=== PATIENT | male | born 1935 | race Caucasian/White ===

== ENCOUNTER 2017-05-13 17:38 | Emergency (ER) | payer SELFPAY ==
[~2017-05-13] VITALS: Ht 177.8 cm; Wt 99.8 kg
--- NOTE | 2017-05-13 17:54 | NUR ---
PT FIONA FROM HOME TO ER BED 10. PER REPORT, HYPERTENSION. C/O HEADACHE AND DIZZINESS. GOWNED AND PLACED ON MONITOR. NAD NOTED. AWAITING MD WINTERS.
--- NOTE | 2017-05-13 18:29 | NUR ---
DR IZQUIERDO AT BEDSIDE FOR EVAL.
[2017-05-13 19:00] LABS: BASOPHILS % (AUTO) 0.3 % (0.0-2.0); EOSINOPHILS # (AUTO) 0.1 /CMM (0.0-0.7); HEMATOCRIT 43 % (39-51); HEMOGLOBIN 14.6 g/dL (13.5-17.5); LYMPHOCYTES # (AUTO) 1.4 /CMM (0.8-4.8); LYMPHOCYTES % (AUTO) 21.7 % (20.0-44.0); MEAN CORPUSCULAR HEMOGLOBIN 28 PG (26.0-33.0); MEAN CORPUSCULAR HGB CONC 34 g/dl (31.0-36.0); MEAN CORPUSCULAR VOLUME 82 fL (80-96); MONOCYTES # (AUTO) 0.4 /CMM (0.1-1.30); MONOCYTES % (AUTO) 6.7 % (2.0-12.0); NEUTROPHILS # (AUTO) 4.8 /CMM (1.8-8.9); NEUTROPHILS % (AUTO) 69.3 % (43.0-81.0); PLATELET COUNT (AUTO) 163 /CMM (150-450); RDW COEFFICIENT OF VARIATION 12.3 (11.5-15.0); RED BLOOD CELL COUNT(AUTO) 5.19 MIL/uL (4.5-6.0); WHITE BLOOD COUNT (AUTO) 6.7 K/uL (4.3-11.0)
[2017-05-13 19:10] LABS: CALCIUM, SERUM 9.1 mg/dL (8.5-10.1); CARBON DIOXIDE 31 mmol/L (21-32); CHLORIDE 105 mmol/L (98-107); GLUCOSE 127 mg/dL (74-106); POTASSIUM 3.8 mmol/L (3.5-5.1); SODIUM SERUM 142 mmol/L (136-145); UREA NITROGEN, BLOOD 21 mg/dL (7-18)
[2017-05-13 19:15] LABS: INR 0.96 (0.87-1.13)
--- NOTE | 2017-05-13 20:35 | NUR ---
Patient discharged to home in stable condition. Written and verbal after care instructions given. Patient verbalizes understanding of instruction.IV removed. Catheter intact and site benign. Pressure and 4x4 applied to site. No bleeding noted.
[2017-05-13 20:36] VITALS: BP 152/77
== END 2017-05-13 20:37 | disposition home or self-care (01) ==
LOC: ER 17:40
DX: R42 Dizziness and giddiness (principal); I10 Essential (primary) hypertension; Z85.841 Personal history of malignant neoplasm of brain
CPT/HCPCS: 36415; 70450; 80048; 85025; 85730; 93005; 99285; A4606; Z7610

== ENCOUNTER 2017-06-24 20:14 | Emergency (ER) | payer OTHER ==
[~2017-06-24] VITALS: Ht 180.3 cm; Wt 100.7 kg
--- NOTE | 2017-06-24 20:20 | NUR ---
PT BROUGHT WITH C/O OF ABNORMAL SPEACH X 2 HOURS AGO. PT STATES " I WAS HAVING A HARD TIME TALKING, BUT I AM A LITTLE BETTER NOW." PT IS AAOX4. RESP EVEN AND UNLABORED. SKIN WNL AND WARM. NO S/S OF ACUTE DISTRESS NOTED. PT ABLE TO MOVE ALL EXTREMITIES WITH NO EVIDENT DEFICITS. PER , PT'S SMILE IS SLIGHTLY DROOPY ON THE RIGHT SIDE. MADE AWARE. PT GOWNED AND PLACED ON MONITOR AND POX. PT SAFETY AND COMFORT MEASURES IN PLACE. BEDSIDE FOR EVAL.
--- NOTE | 2017-06-24 20:24 | NUR ---
PT TO CT
--- NOTE | 2017-06-24 20:26 | NUR ---
RADIOLOGY BEDSIDE FOR X-RAY.
[2017-06-24] MEDS ORDERED: LABETALOL 20 MG/4 ML VIAL IV ONE (20:30)
[2017-06-24 21:05] LABS: BASOPHILS % (AUTO) 0.4 % (0.0-2.0); EOSINOPHILS # (AUTO) 0.1 /CMM (0.0-0.7); EOSINOPHILS % (AUTO) 0.9 % (0.0-6.0); HEMATOCRIT 41 % (39-51); LYMPHOCYTES # (AUTO) 1.3 /CMM (0.8-4.8); LYMPHOCYTES % (AUTO) 21.8 % (20.0-44.0); MEAN CORPUSCULAR HEMOGLOBIN 29 PG (26.0-33.0); MEAN CORPUSCULAR HGB CONC 34 g/dl (31.0-36.0); MEAN CORPUSCULAR VOLUME 84 fL (80-96); MONOCYTES # (AUTO) 0.5 /CMM (0.1-1.30); MONOCYTES % (AUTO) 8.4 % (2.0-12.0); NEUTROPHILS % (AUTO) 68.5 % (43.0-81.0); PLATELET COUNT (AUTO) 134 /CMM (150-450); RDW COEFFICIENT OF VARIATION 14.2 (11.5-15.0); RED BLOOD CELL COUNT(AUTO) 4.84 MIL/uL (4.5-6.0); WHITE BLOOD COUNT (AUTO) 5.9 K/uL (4.3-11.0)
--- NOTE | 2017-06-24 21:12 | NUR ---
ACCU CHECK PERFORMED. MADE AWARE
[2017-06-24 21:16] LABS: INR 1.02 (0.87-1.13)
[2017-06-24 21:17] LABS: CARBON DIOXIDE 27 mmol/L (21-32); CHLORIDE 106 mmol/L (98-107); GLUCOSE 130 mg/dL (74-106); POTASSIUM 3.9 mmol/L (3.5-5.1); SODIUM SERUM 143 mmol/L (136-145); UREA NITROGEN, BLOOD 29 mg/dL (7-18)
--- NOTE | 2017-06-24 21:17 | NUR ---
Patient is resting comfortably in bed with eyes open. bedside with pt. VSS
[2017-06-24 21:23] LABS: CHOLESTEROL 127 mg/dL (<200); HDL CHOLESTEROL 43 mg/dL (40-60); LDL 62 mg/dL (0-99); TRIGLYCERIDES 161 mg/dL (30-150)
[2017-06-24 21:24] LABS: ALANINE AMINOTRANSFERASE 49 U/L (12-78); ALBUMIN 3.2 g/dL (3.4-5.0); ALKALINE PHOSPHATASE 127 U/L (46-116); ASPARTATE AMINOTRANSFERASE 28 U/L (15-37); BILIRUBIN,DIRECT 0.2 mg/dL (0.0-0.2); TOTAL PROTEIN, SERUM 6.5 g/dL (6.4-8.2); TROPONIN I < 0.017 ng/mL (0.00-0.056)
--- NOTE | 2017-06-24 21:27 | NUR ---
MISTY SETH DR
[2017-06-24] MEDS ORDERED: ASPIRIN 325 MG TABLET PO ONE (21:30)
[2017-06-24] MEDS ORDERED: LEVETIRACETAM (500MG) 500 MG in IV NS 0.9% 100 ML IV SCH (21:30)
--- NOTE | 2017-06-24 22:05 | NUR ---
CALLED [facility] FOR TRANSFER INFO - NOT AVAILABLE YET
[2017-06-24] MEDS ORDERED: LEVETIRACETAM (500MG) 500 MG/5 ML VIAL IV ONE (22:14)
[2017-06-24] MEDS ORDERED: ASPIRIN 325 MG TABLET ONE (22:14)
--- NOTE | 2017-06-24 22:17 | NUR ---
PATIENT IS BEING TRANSFERRED TO [facility] - ACCEPTING DR SUTHERLAND - GIVE REPORT TO ER - ALS [facility] EN ROUTE ETA [phone]
--- NOTE | 2017-06-24 22:38 | NUR ---
PATIENT DOES NOT WANT TO GO TO [facility] - CALLED [facility] TO SEE IF DESTINATION CAN CHANGE - AWAITING CALL BACK
[2017-06-24] MEDS ORDERED: LABETALOL HCL IV 100MG VIAL ONE (22:48)
--- NOTE | 2017-06-24 23:07 | NUR ---
EMT AND FAMILY MEMBER BEDSIDE TO HELP PT TO RESTROOM.
[2017-06-24] MEDS ORDERED: MAG HYDROX/AL HYDROX/SIMETH 30 ML UDC ONE (23:23)
[2017-06-24] MEDS ORDERED: MAG HYDROX/AL HYDROX/SIMETH 30 ML UDC PO ONE (23:30)
--- NOTE | 2017-06-25 00:20 | NUR ---
Patient is resting comfortably in bed with eyes open. VSS. Family member bedside with pt.
--- NOTE | 2017-06-25 00:34 | NUR ---
PT ACCEPTED TO [facility] ROOM 5[address] BY DR ALMODOVAR. # FOR REPORT [phone]. ETA [phone]
--- NOTE | 2017-06-25 01:46 | NUR ---
GAVE REPORT TO JACINDA MATSON AT [facility]. PRN BEDSIDE FOR TRANSPORT. Patient Tranfers to outside Facility [facility] Physician: kin Location:[facility]
[2017-06-25 01:51] VITALS: BP 169/92
== END 2017-06-25 01:56 ==
LOC: ER 20:16
DX: G45.9 Transient cerebral ischemic attack, unspecified (principal); E11.9 Type 2 diabetes mellitus without complications; G40.909 Epilepsy, unspecified, not intractable, without status epilepticus; G93.89 Other specified disorders of brain; I10 Essential (primary) hypertension; N40.0 Benign prostatic hyperplasia without lower urinary tract symptoms; Z79.82 Long term (current) use of aspirin; Z85.841 Personal history of malignant neoplasm of brain
CPT/HCPCS: 36415; 70450-TC; 71045-TC; 80048-TC; 80061-TC; 80076-TC; 82962-TC; 84484-TC; 85025-TC; 85730-TC; A4606; J1953; J3490; J7030; Z7610

== ENCOUNTER 2017-10-03 01:51 | Emergency (ER) | payer OTHER ==
[~2017-10-03] VITALS: Ht 175.3 cm; Wt 102.5 kg
--- NOTE | 2017-10-03 01:52 | NUR ---
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 PT AAOX4 NO ACUTE DISTRESS NOTED, RESP EVEN AND UNLABORED. SKIN WARM, NONDIAPHORETIC. PUPILS PERRLA, PT ABLE TO MOVE ALL EXTREMITIES WELL WITH WILATERAL EQUAL PEDIATRIC NURSE. PLACE PT ON CARDIAC MONITORING, CONTINUOUS POX. ER MD AT BEDSIDE TO EVAL PT WITH ORDERS RECEIVED. WILL CARRY OUT ORDERS.
--- NOTE | 2017-10-03 01:55 | NUR ---
STARTED SL 18G TO [facility], BLOOD DRAWN AND SENT TO LAB.
--- NOTE | 2017-10-03 01:59 | NUR ---
STARTED #2 SL 18G TO [facility].
--- NOTE | 2017-10-03 02:04 | NUR ---
CODE STROKE PAGED
--- NOTE | 2017-10-03 02:13 | NUR ---
PT TRANSPORTED TO RADIOLOGY FOR CT HEAD.
--- NOTE | 2017-10-03 02:14 | NUR ---
[facility] CALLED AND CASE PRESENTED.
--- NOTE | 2017-10-03 02:17 | NUR ---
SPOKE TO JOSELO INFANTE TELE STROKE LINE AND DR. HADLEY TO CALL BACK
[2017-10-03] MEDS ORDERED: CT SWABBABLE VALVE TRANS SET 1 EA INFUS.SET MC ONE (02:21)
[2017-10-03] MEDS ORDERED: IOHEXOL-350 100 ML VIAL IV ONE (02:21)
[2017-10-03] MEDS ORDERED: IV NS 0.9% 500 ML IV ONE (02:22)
--- NOTE | 2017-10-03 02:22 | NUR ---
ER TALKING TO TELENEUROLOGY DR. CALABRESE REGARDING PT.
[2017-10-03 02:26] LABS: BASOPHILS % (AUTO) 0.4 % (0.0-2.0); EOSINOPHILS % (AUTO) 1.6 % (0.0-6.0); HEMATOCRIT 43 % (39-51); HEMOGLOBIN 14.4 g/dL (13.5-17.5); LYMPHOCYTES # (AUTO) 1.4 /CMM (0.8-4.8); LYMPHOCYTES % (AUTO) 22.3 % (20.0-44.0); MEAN CORPUSCULAR HGB CONC 34 g/dl (31.0-36.0); MEAN CORPUSCULAR VOLUME 83 fL (80-96); MONOCYTES # (AUTO) 0.4 /CMM (0.1-1.30); MONOCYTES % (AUTO) 7.3 % (2.0-12.0); NEUTROPHILS # (AUTO) 4.2 /CMM (1.8-8.9); NEUTROPHILS % (AUTO) 68.4 % (43.0-81.0); PLATELET COUNT (AUTO) 162 /CMM (150-450); RDW COEFFICIENT OF VARIATION 13.9 (11.5-15.0); RED BLOOD CELL COUNT(AUTO) 5.13 MIL/uL (4.5-6.0); WHITE BLOOD COUNT (AUTO) 6.1 K/uL (4.3-11.0)
[2017-10-03 02:32] LABS: CALCIUM, SERUM 9.2 mg/dL (8.5-10.1); CARBON DIOXIDE 29 mmol/L (21-32); CHLORIDE 109 mmol/L (98-107); CREATININE 1.1 mg/dL (0.6-1.3); GLUCOSE 142 mg/dL (74-106); POTASSIUM 3.9 mmol/L (3.5-5.1); SODIUM SERUM 147 mmol/L (136-145); UREA NITROGEN, BLOOD 21 mg/dL (7-18)
--- NOTE | 2017-10-03 02:34 | NUR ---
PT BACK FROM RADIOLOGY. PENDING CT RESULT.
[2017-10-03 02:35] LABS: INR 0.98 (0.87-1.13)
[2017-10-03 02:36] LABS: TROPONIN I < 0.017 ng/mL (0.00-0.056)
--- NOTE | 2017-10-03 02:50 | NUR ---
[facility]OL[facility] KEL[facility] CALLED AND CASE PRESENTED TO CHRISTINE.
[2017-10-03 03:00] LABS: CHOLESTEROL 102 mg/dL (<200); HDL CHOLESTEROL 36 mg/dL (40-60); LDL 44 mg/dL (0-99); TRIGLYCERIDES 265 mg/dL (30-150)
--- NOTE | 2017-10-03 03:12 | NUR ---
PRATIMA MENDOZA SPOKE TO RADIOLOGIST.
--- NOTE | 2017-10-03 04:03 | NUR ---
SPOKE TO [place], TRANSFER INFO RECEIVED. PT WILL BE GOING TO [facility], PHONE # FOR REPORT . ACCEPTING MD SHAVONNE BRENNAN TRANSPORT ETA 1HOUR.
[2017-10-03 04:20] VITALS: BP 158/94
--- NOTE | 2017-10-03 04:20 | NUR ---
report given to ryan thomson. report given to ALS transport.
== END 2017-10-03 04:27 | disposition short-term general hospital (02) ==
LOC: ER 01:54
DX: G45.9 Transient cerebral ischemic attack, unspecified (principal); I10 Essential (primary) hypertension; I65.23 Occlusion and stenosis of bilateral carotid arteries; I73.9 Peripheral vascular disease, unspecified; N40.0 Benign prostatic hyperplasia without lower urinary tract symptoms; Z85.841 Personal history of malignant neoplasm of brain; E78.00 Pure hypercholesterolemia, unspecified; Z98.890 Other specified postprocedural states
CPT/HCPCS: 36415; 70450; 70496; 71045; 80048; 80061; 82962; 84484; 85025; 85730; 93005; 99285; A4606; J7040; Q9967; Z7610

== ENCOUNTER 2018-07-20 22:34 | Emergency (ER) | payer BC, OTHER ==
[~2018-07-20] VITALS: Ht 170.2 cm; Wt 98.0 kg
--- NOTE | 2018-07-20 22:42 | NUR ---
PT BIBRA FOR HYPERTENSION, ALTERED MENTAL STATUS. PT FAMILY STATES LEFT SIDED WEAKNESS SINCE 11AM YESTERDAY, AND CONFUSION. PT FAMILY STATES PT IS NOT ALTERED AT THE MOMENT. PT RESPIRATIONS EVEN AND UNLABORED. PT HAS LEFT SIDED WEAKNESS AT THE MOMENT. PT PUT ON THE SWITCH ENGINEER AND PULSE OX. PENDING EVAL FROM ER .
--- NOTE | 2018-07-20 22:42 | NUR ---
Note undone in EDM - 07/21/18 at 0028 by NICK PT BIBRA FOR HYPERTENSION, ALTERED MENTAL STATUS. PT FAMILY STATES LEFT SIDED WEAKNESS SINCE 11AM YESTERDAY, AND CONFUSION. PT AXO4 AT THIS MOMENT. PT RESPIRATIONS EVEN AND UNLABORED. PT HAS LEFT SIDED WEAKNESS AT THE MOMENT. PT PUT ON THE CAKE WRINGER AND PULSE OX. PENDING EVAL FROM PRATIMA MENDOZA.
--- NOTE | 2018-07-20 22:45 | NUR ---
CONTACT LENS MOLDER AT BEDSIDE.
[2018-07-20 22:58] LABS: BASOPHILS % (AUTO) 0.6 % (0.0-2.0); EOSINOPHILS % (AUTO) 1.7 % (0.0-6.0); HEMATOCRIT 44 % (39-51); HEMOGLOBIN 14.6 g/dL (13.5-17.5); LYMPHOCYTES # (AUTO) 1.5 /CMM (0.8-4.8); LYMPHOCYTES % (AUTO) 28.3 % (20.0-44.0); MEAN CORPUSCULAR HGB CONC 33 g/dl (31.0-36.0); MEAN CORPUSCULAR VOLUME 83 fL (80-96); MONOCYTES # (AUTO) 0.4 /CMM (0.1-1.30); MONOCYTES % (AUTO) 8.5 % (2.0-12.0); NEUTROPHILS # (AUTO) 3.1 /CMM (1.8-8.9); NEUTROPHILS % (AUTO) 60.9 % (43.0-81.0); PLATELET COUNT (AUTO) 154 /CMM (150-450); RED BLOOD CELL COUNT(AUTO) 5.29 MIL/uL (4.5-6.0); WHITE BLOOD COUNT (AUTO) 5.2 K/uL (4.3-11.0)
[2018-07-20 23:22] LABS: CALCIUM, SERUM 9.3 mg/dL (8.5-10.1); CARBON DIOXIDE 26 mmol/L (21-32); CHLORIDE 108 mmol/L (98-107); GLUCOSE 116 mg/dL (74-106); POTASSIUM 3.6 mmol/L (3.5-5.1); SODIUM SERUM 143 mmol/L (136-145); UREA NITROGEN, BLOOD 19 mg/dL (7-18)
[2018-07-20 23:26] LABS: ALANINE AMINOTRANSFERASE 31 U/L (12-78); ALBUMIN 3.4 g/dL (3.4-5.0); ALKALINE PHOSPHATASE 144 U/L (46-116); ASPARTATE AMINOTRANSFERASE 18 U/L (15-37); BILIRUBIN,DIRECT 0.3 mg/dL (0.0-0.2); BILIRUBIN,TOTAL 1.2 mg/dL (0.2-1.0); TOTAL PROTEIN, SERUM 6.7 g/dL (6.4-8.2)
--- NOTE | 2018-07-20 23:44 | NUR ---
URINE SAMPLE OBTAINED SENT TO LAB.
[2018-07-20 23:48] LABS: APPEARANCE,URINE CLEAR (CLEAR); BILIRUBIN,URINE NEGATIVE (NEGATIVE); BLOOD, URINE NEGATIVE Ery/uL (NEGATIVE); COLOR,URINE YELLOW (YELLOW); KETONES,URINE NEGATIVE (NEGATIVE); LEUKOCYTE ESTERASE ,URINE NEGATIVE (NEGATIVE); NITRITE, URINE NEGATIVE (NEGATIVE); PROTEIN,URINE NEGATIVE (NEGATIVE); UGLUCOSE NEGATIVE (NEGATIVE); UROBILINOGEN,URINE 0.2 EU/dL (0.2)
[2018-07-21] MEDS ORDERED: DEXAMETHASONE SOD PHOSPHATE 10 MG/ML VIAL IV ONE (00:30)
[2018-07-21] MEDS ORDERED: DEXAMETHASONE SOD PHOSPHATE 10 MG/ML VIAL ONE (00:37)
--- NOTE | 2018-07-21 00:37 | NUR ---
PT HYPERTENSIVE ON THE MONITOR, ER AWARE. WILL CARRY OUT ORDERS.
[2018-07-21] MEDS ORDERED: hydrALAZINE HCL IV 20 MG VIAL ONE (00:42)
[2018-07-21] MEDS ORDERED: hydrALAZINE HCL IV 20 MG VIAL IV ONE (01:00)
--- NOTE | 2018-07-21 01:05 | NUR ---
PT ACCEPTED TO [facility] ROOM [address] BY [address] ATKINS. # FOR REPORT [phone].
--- NOTE | 2018-07-21 01:06 | NUR ---
[facility] CALLED FOR TRANSPORT ETA 0145. TRIP#[id number]
[2018-07-21] MEDS ORDERED: LEVETIRACETAM (500MG) 500 MG/5 ML VIAL IV ONE (01:11)
[2018-07-21] MEDS ORDERED: LEVETIRACETAM (500MG) 500 MG in IV NS 0.9% 100 ML IV SCH (01:30)
--- NOTE | 2018-07-21 01:35 | NUR ---
REPORT GIVEN TO ROB MONACO AT [facility].
[2018-07-21 01:36] VITALS: BP 138/43
== END 2018-07-21 02:34 | disposition short-term general hospital (02) ==
LOC: ER 22:41
DX: G93.6 Cerebral edema (principal); G81.90 Hemiplegia, unspecified affecting unspecified side; G20 Parkinson's disease; I10 Essential (primary) hypertension; E11.9 Type 2 diabetes mellitus without complications; R56.9 Unspecified convulsions; N40.0 Benign prostatic hyperplasia without lower urinary tract symptoms; E78.00 Pure hypercholesterolemia, unspecified; R41.82 Altered mental status, unspecified; Z85.841 Personal history of malignant neoplasm of brain; Z98.890 Other specified postprocedural states
CPT/HCPCS: 36415; 70450; 71045; 80048; 80076; 81001; 84484; 85025; 85730; 93005; 96365; 96375; 99285; J0360; J1100; J1953 ×2; J7030 ×2; 81000-TC

== ENCOUNTER 2018-10-19 09:08 | Emergency (ER) | payer BC ==
[~2018-10-19] VITALS: Ht 167.6 cm; Wt 100.2 kg
--- NOTE | 2018-10-19 09:22 | NUR ---
PT REC'D TO ER VIA EMS CALLLED 911 ACCU CK 421 AND PT TOOK MEDS . IV PRESEMNT NS FLUID RT AC 18 NOTED . SITE GOOD AWAITING EVALUATION BY ER PROVIDER.
[2018-10-19] MEDS ORDERED: LABETALOL 20 MG/4 ML VIAL IV ONE (09:30)
[2018-10-19] MEDS ORDERED: IV NS 0.9% 500 ML BAG IV ONE (09:30)
[2018-10-19] MEDS ORDERED: INSULIN REGULAR, HUMAN 100 UNIT/ML 10 ML VIAL IV ONE (09:30)
[2018-10-19] MEDS ORDERED: TAMS-12 PO (09:34)
[2018-10-19] MEDS ORDERED: BISA-79 PO (09:34)
[2018-10-19] MEDS ORDERED: CARB1TAB21 PO (09:34)
[2018-10-19] MEDS ORDERED: DEXA4TAB PO (09:34)
[2018-10-19] MEDS ORDERED: ATEN50TA PO (09:34)
[2018-10-19] MEDS ORDERED: LEVE750T35 PO (09:34)
[2018-10-19] MEDS ORDERED: CLOP75TA15 PO (09:34)
[2018-10-19] MEDS ORDERED: INSU100V7 SQ (09:34)
[2018-10-19] MEDS ORDERED: AMLO2.5T2 PO (09:34)
[2018-10-19] MEDS ORDERED: LISI40TA4 PO (09:34)
[2018-10-19 09:35] LABS: BASOPHILS % (AUTO) 0.3 % (0.0-2.0); HEMATOCRIT 36 % (39-51); HEMOGLOBIN 12.4 g/dL (13.5-17.5); LYMPHOCYTES # (AUTO) 0.6 /CMM (0.8-4.8); LYMPHOCYTES % (AUTO) 10.3 % (20.0-44.0); MEAN CORPUSCULAR HGB CONC 34 g/dl (31.0-36.0); MEAN CORPUSCULAR VOLUME 90 fL (80-96); MONOCYTES # (AUTO) 0.3 /CMM (0.1-1.30); NEUTROPHILS # (AUTO) 4.5 /CMM (1.8-8.9); NEUTROPHILS % (AUTO) 83.4 % (43.0-81.0); PLATELET COUNT (AUTO) 75 /CMM (150-450); RED BLOOD CELL COUNT(AUTO) 4.03 MIL/uL (4.5-6.0); WHITE BLOOD COUNT (AUTO) 5.4 K/uL (4.3-11.0)
[2018-10-19] MEDS ORDERED: INSULIN REGULAR, HUMAN 100 UNIT/ML 10 ML VIAL ONE (09:39)
--- NOTE | 2018-10-19 09:48 | NUR ---
PT GIVEN 10 UNITS REG INSULIN RT DELTOID SQ PER MD ORDER MEDS GIVNE PER GOPAL BP
[2018-10-19 09:56] LABS: B-TYPE NATRIURETIC PEPTIDE 1126 PG/ML (0-125); CALCIUM, SERUM 8.6 mg/dL (8.5-10.1); CARBON DIOXIDE 27 mmol/L (21-32); CHLORIDE 102 mmol/L (98-107); CREATININE 0.8 mg/dL (0.6-1.3); POTASSIUM 3.9 mmol/L (3.5-5.1); SODIUM SERUM 139 mmol/L (136-145); UREA NITROGEN, BLOOD 33 mg/dL (7-18)
[2018-10-19 09:57] LABS: GLUCOSE 422 mg/dL (74-106)
[2018-10-19 10:04] LABS: BAND % (MANUAL) 2 % (0.0-5.0); LYMPHOCYTES % (MANUAL) 3 % (16-48); MONOCYTES % (MANUAL) 4 % (0-11.0); MYELOCYTES % 2 % (0-0); NEUTROPHILS % (MANUAL) 89 (42-76)
--- NOTE | 2018-10-19 10:48 | NUR ---
[facility] NOTIED ACCU CK 306 REPOSITIONED FOR COMFORT VSS
--- NOTE | 2018-10-19 12:30 | NUR ---
pt given lunch ttolerated well
--- NOTE | 2018-10-19 13:30 | NUR ---
IV removed. Catheter intact and site benign. Pressure and 4x4 applied to site. No bleeding noted.Patient discharged to home in stable condition. Written and verbal after care instructions given. Patient verbalizes understanding of instruction.
[2018-10-19 14:24] VITALS: BP 152/69
== END 2018-10-19 14:26 | disposition home or self-care (01) ==
LOC: ER 09:08
DX: E11.65 Type 2 diabetes mellitus with hyperglycemia (principal); I10 Essential (primary) hypertension; N40.0 Benign prostatic hyperplasia without lower urinary tract symptoms; Z85.841 Personal history of malignant neoplasm of brain; Z98.890 Other specified postprocedural states; Z79.899 Other long term (current) drug therapy; Z79.4 Long term (current) use of insulin; Z86.73 Personal history of transient ischemic attack (TIA), and cerebral infarction without residual deficits
CPT/HCPCS: 36415; 71045; 80048; 82962 ×2; 83880; 84484; 85025; 93005; 96361; 96372; 96374; 99284; J1815; J3490; J7040

== ENCOUNTER 2018-12-18 18:01 | Inpatient (IN) | payer BC ==
[2018-12-17] MEDS: ASPIRIN EC 325 MG TABLET.DR PO ONE (20:44)
[~2018-12-18 18:01] MED LIST: AMLO2.5T2 PO; ATEN50TA PO; BISA-79 PO; CARB1TAB21 PO; CLOP75TA15 PO; DEXA4TAB PO; INSU100V7 SQ; LEVE750T35 PO; LISI40TA4 PO; TAMS-12 PO
[2018-12-18] MEDS ORDERED: CT SWABBABLE VALVE TRANS SET 1 EA INFUS.SET MC ONE (18:36)
[2018-12-18] MEDS ORDERED: IOHEXOL-350 100 ML VIAL IV ONE (18:36)
[2018-12-18] MEDS ORDERED: IV NS 0.9% 250 ML IV ONE (18:37)
[2018-12-18] MEDS ORDERED: IV NS 0.9% 1,000 ML BAG IV ONE (19:30)
[2018-12-18] MEDS ORDERED: CEFTRIAXONE 1GM BAG (ER ONLY) 1 GM/50 ML PIGGYBACK IV ONE (20:30)
[2018-12-18] MEDS ORDERED: CEFTRIAXONE 1GM BAG (ER ONLY) 50 ML IV ONE (20:41)
[2018-12-18] MEDS ORDERED: ASPIRIN EC 325 MG TABLET.DR PO ONE (20:41)
[2018-12-18] MEDS: ASPIRIN EC 325 MG TABLET.DR PO ONE (20:44)
[2018-12-18] MEDS ORDERED: LIDOCAINE VISCOUS 2% UD 15 ML UDC ONE (21:44)
[2018-12-18] MEDS ORDERED: MAG HYDROX/AL HYDROX/SIMETH 30 ML UDC ONE (21:44)
[2018-12-18] MEDS: MAG HYDROX/AL HYDROX/SIMETH 30 ML UDC PO ONE ×2 (21:49→21:53)
[2018-12-18] MEDS: LIDOCAINE VISCOUS 2% UD 15 ML UDC MM ONE ×2 (21:49→21:53)
[2018-12-18] MEDS ORDERED: CALC-20 PO (23:56)
[2018-12-18] MEDS ORDERED: METF500T PO (23:56)
[2018-12-18] MEDS ORDERED: DEXA4TAB PO (23:56)
[2018-12-18] MEDS ORDERED: AMLO10TA4 PO (23:56)
[2018-12-18] MEDS ORDERED: INSU100V7 SQ (23:56)
[2018-12-18] MEDS ORDERED: CARV6.252 PO (23:56)
[2018-12-18] MEDS ORDERED: DOCU100C36 PO (23:56)
[2018-12-18] MEDS ORDERED: HYDR25TA4 PO (23:56)
[2018-12-18] MEDS ORDERED: POLY17PO4 PO (23:58)
[2018-12-18] MEDS ORDERED: ATOR10TA PO (23:59)
[2018-12-19] MEDS ORDERED: HYDROCODONE/APAP 5/325MG 1 EACH TABLET PO PRN
[2018-12-19] MEDS ORDERED: Z GUARD REMEDY 2 OZ OINT TP PRN
[2018-12-19] MEDS ORDERED: ZOLPIDEM TARTRATE 5 MG TABLET PO PRN
[2018-12-19] MEDS ORDERED: DEXTROSE 50%-WATER 50 ML DISP.SYRIN IV PRN
[2018-12-19] MEDS ORDERED: MAGNESIUM HYDROXIDE 30 ML UDC PO PRN
[2018-12-19] MEDS ORDERED: ONDANSETRON HCL/PF 4 MG/2 ML VIAL IVP PRN
[2018-12-19] MEDS ORDERED: MULT-1215 PO (00:10)
[2018-12-19] MEDS ORDERED: MULT1TAB73 PO (00:10)
[2018-12-19] MEDS ORDERED: POLYETHYLENE GLYCOL 3350 17 GM POWD.PACK PO PRN (00:30)
[2018-12-19] MEDS: MAG HYDROX/AL HYDROX/SIMETH 30 ML UDC PO PRN (00:31)
[2018-12-19] MEDS: DOCUSATE SODIUM 250 MG CAPSULE PO SCH ×2 (02:29→08:34)
[2018-12-19] MEDS: INSULIN REGULAR, HUMAN 100 UNIT/ML 3 ML VIAL SQ PRN ×4 (06:33→21:55)
[2018-12-19] MEDS: BLOOD SUGAR DIAGNOSTIC 1 EACH STRIP IN SCH ×4 (06:33→21:50)
[2018-12-19] MEDS ORDERED: KETOROLAC TROMETHAMINE INJ 30 MG/ML VIAL IM PRN (08:00)
[2018-12-19] MEDS: Magnesium 1GM/D5W 100ML PREMIX 100 ML IV SCH ×2 (08:22→09:14)
[2018-12-19] MEDS: CARBIDOPA/LEVODOPA 25/100 MG 1 UDTAB PO SCH ×3 (08:34→16:55)
[2018-12-19] MEDS: CALCIUM CARB 600MG /VIT D 1 EACH TABLET PO SCH (08:34)
[2018-12-19] MEDS: MULTIVIT W/MINERALS 1 TAB TABLET PO SCH (08:34)
[2018-12-19] MEDS: POTASSIUM CHLORIDE 20 MEQ TAB.PRT.SR PO SCH ×2 (08:35→09:14)
[2018-12-19] MEDS: TAMSULOSIN 0.4 MG CAP.SR.24H PO SCH ×2 (08:35→16:55)
[2018-12-19] MEDS: ASPIRIN EC 81 MG TABLET.DR PO SCH (08:35)
[2018-12-19] MEDS: CARVEDILOL 6.25 MG TABLET PO SCH ×2 (08:36→16:56)
[2018-12-19] MEDS: FUROSEMIDE 40 MG/4 ML VIAL IV SCH ×2 (08:37→12:03)
[2018-12-19] MEDS: LISINOPRIL (20MG) 20 MG TABLET PO SCH (08:37)
[2018-12-19] MEDS: CLOPIDOGREL BISULFATE 75 MG TABLET PO SCH (08:38)
[2018-12-19] MEDS: ENOXAPARIN SODIUM 100 MG/ML DISP.SYRIN SQ SCH ×2 (08:42→21:53)
[2018-12-19] MEDS ORDERED: DEXAMETHASONE SOLN 5 MG/5 ML UDC PO SCH ×2 (09:00)
[2018-12-19] MEDS ORDERED: HYDROCHLOROTHIAZIDE 25 MG TABLET PO SCH (09:00)
[2018-12-19] MEDS: DEXAMETHASONE 1 MG TABLET PO SCH ×2 (09:19→16:56)
[2018-12-19] MEDS: LEVETIRACETAM 750 MG PO SCH ×2 (13:42→21:44)
[2018-12-19] MEDS ORDERED: ATORVASTATIN 10 MG TABLET PO SCH (18:00)
[2018-12-19] MEDS: CEFTRIAXONE 1 G in IV D5W 50 ML IV SCH (21:44)
[2018-12-19] MEDS: INSULIN GLARGINE, 100 UNIT/ML CARTRIDGE SQ SCH (21:54)
[2018-12-20] MEDS: MAG HYDROX/AL HYDROX/SIMETH 30 ML UDC PO PRN (01:02)
[2018-12-20] MEDS: ACETAMINOPHEN 325 MG TABLET PO PRN ×3 (03:02→21:56)
[2018-12-20] MEDS: BLOOD SUGAR DIAGNOSTIC 1 EACH STRIP IN SCH ×4 (06:45→22:42)
[2018-12-20] MEDS: DOCUSATE SODIUM 250 MG CAPSULE PO SCH (09:00)
[2018-12-20] MEDS: CARBIDOPA/LEVODOPA 25/100 MG 1 UDTAB PO SCH ×3 (09:00→17:02)
[2018-12-20] MEDS: LEVETIRACETAM 750 MG PO SCH ×2 (09:00→21:11)
[2018-12-20] MEDS: MULTIVIT W/MINERALS 1 TAB TABLET PO SCH (09:00)
[2018-12-20] MEDS: TAMSULOSIN 0.4 MG CAP.SR.24H PO SCH ×2 (09:00→17:02)
[2018-12-20] MEDS: ASPIRIN EC 81 MG TABLET.DR PO SCH (09:00)
[2018-12-20] MEDS: CARVEDILOL 6.25 MG TABLET PO SCH ×2 (09:00→17:02)
[2018-12-20] MEDS: DEXAMETHASONE 1 MG TABLET PO SCH ×2 (09:00→17:05)
[2018-12-20] MEDS: METOLAZONE 2.5 MG TABLET PO SCH (09:00)
[2018-12-20] MEDS: CLOPIDOGREL BISULFATE 75 MG TABLET PO SCH (09:00)
[2018-12-20] MEDS: CALCIUM CARB 600MG /VIT D 1 EACH TABLET PO SCH (09:00)
[2018-12-20] MEDS: LISINOPRIL (20MG) 20 MG TABLET PO SCH (09:00)
[2018-12-20] MEDS ORDERED: LORAZEPAM INJ 2 MG/ML VIAL IV ONE (10:00)
[2018-12-20] MEDS ORDERED: LORAZEPAM INJ 2 MG/ML VIAL IV PRN (10:00)
[2018-12-20] MEDS: INSULIN REGULAR, HUMAN 100 UNIT/ML 3 ML VIAL SQ PRN ×2 (11:26→22:46)
[2018-12-20] MEDS: CEFTRIAXONE 1 G in IV D5W 50 ML IV SCH (20:16)
[2018-12-20] MEDS: INSULIN GLARGINE, 100 UNIT/ML CARTRIDGE SQ SCH (22:43)
[2018-12-21] MEDS: ACETAMINOPHEN 325 MG TABLET PO PRN (03:15)
[2018-12-21] MEDS: NA PHOS,M-B/NA PHOS,DI-BA 1 EA ENEMA RC PRN (03:15)
[2018-12-21] MEDS ORDERED: IV NS 0.9% 1,000 ML BAG IV SCH (03:30)
[2018-12-21] MEDS: BLOOD SUGAR DIAGNOSTIC 1 EACH STRIP IN SCH ×4 (07:30→21:41)
[2018-12-21] MEDS: MULTIVIT W/MINERALS 1 TAB TABLET PO SCH (08:37)
[2018-12-21] MEDS: CALCIUM CARB 600MG /VIT D 1 EACH TABLET PO SCH (08:37)
[2018-12-21] MEDS: CARVEDILOL 6.25 MG TABLET PO SCH ×2 (08:37→17:17)
[2018-12-21] MEDS: CLOPIDOGREL BISULFATE 75 MG TABLET PO SCH (08:37)
[2018-12-21] MEDS: ASPIRIN EC 81 MG TABLET.DR PO SCH (08:38)
[2018-12-21] MEDS: TAMSULOSIN 0.4 MG CAP.SR.24H PO SCH ×2 (08:38→17:15)
[2018-12-21] MEDS: CARBIDOPA/LEVODOPA 25/100 MG 1 UDTAB PO SCH ×3 (08:38→17:17)
[2018-12-21] MEDS: DOCUSATE SODIUM 250 MG CAPSULE PO SCH (08:38)
[2018-12-21] MEDS: LISINOPRIL (20MG) 20 MG TABLET PO SCH (08:38)
[2018-12-21] MEDS: METOLAZONE 2.5 MG TABLET PO SCH (08:39)
[2018-12-21] MEDS: LEVETIRACETAM 750 MG PO SCH ×2 (08:39→21:23)
[2018-12-21] MEDS: DEXAMETHASONE 1 MG TABLET PO SCH ×2 (08:39→17:15)
[2018-12-21] MEDS: INSULIN REGULAR, HUMAN 100 UNIT/ML 3 ML VIAL SQ PRN ×3 (12:14→21:46)
[2018-12-21] MEDS: CEFTRIAXONE 1 G in IV D5W 50 ML IV SCH (20:25)
[2018-12-21] MEDS: INSULIN GLARGINE, 100 UNIT/ML CARTRIDGE SQ SCH (21:43)
[2018-12-22] MEDS: BLOOD SUGAR DIAGNOSTIC 1 EACH STRIP IN SCH ×4 (08:44→22:20)
[2018-12-22] MEDS: INSULIN REGULAR, HUMAN 100 UNIT/ML 3 ML VIAL SQ PRN ×3 (08:46→22:54)
[2018-12-22] MEDS: ASPIRIN EC 81 MG TABLET.DR PO SCH (09:00)
[2018-12-22] MEDS: DOCUSATE SODIUM 250 MG CAPSULE PO SCH (09:10)
[2018-12-22] MEDS: TAMSULOSIN 0.4 MG CAP.SR.24H PO SCH ×3 (09:10→21:48)
[2018-12-22] MEDS: MULTIVIT W/MINERALS 1 TAB TABLET PO SCH (09:11)
[2018-12-22] MEDS: CLOPIDOGREL BISULFATE 75 MG TABLET PO SCH (09:11)
[2018-12-22] MEDS: CARVEDILOL 6.25 MG TABLET PO SCH ×3 (09:12→21:49)
[2018-12-22] MEDS: METOLAZONE 2.5 MG TABLET PO SCH (09:12)
[2018-12-22] MEDS: LISINOPRIL (20MG) 20 MG TABLET PO SCH (09:12)
[2018-12-22] MEDS: CARBIDOPA/LEVODOPA 25/100 MG 1 UDTAB PO SCH ×4 (09:12→21:51)
[2018-12-22] MEDS: LEVETIRACETAM 750 MG PO SCH ×2 (09:13→21:19)
[2018-12-22] MEDS: CALCIUM CARB 600MG /VIT D 1 EACH TABLET PO SCH (09:13)
[2018-12-22] MEDS: DEXAMETHASONE 1 MG TABLET PO SCH ×3 (09:14→21:51)
[2018-12-22] MEDS: NA PHOS,M-B/NA PHOS,DI-BA 1 EA ENEMA RC PRN (11:41)
[2018-12-22] MEDS ORDERED: LORAZEPAM INJ 2 MG/ML VIAL IM ONE (17:30)
[2018-12-22] MEDS: CEFTRIAXONE 1 G in IV D5W 50 ML IV SCH (20:00)
[2018-12-22] MEDS: INSULIN GLARGINE, 100 UNIT/ML CARTRIDGE SQ SCH (22:55)
[2018-12-23] MEDS: ACETAMINOPHEN 325 MG TABLET PO PRN (01:18)
[2018-12-23] MEDS: INSULIN REGULAR, HUMAN 100 UNIT/ML 3 ML VIAL SQ PRN (08:23)
[2018-12-23] MEDS: BLOOD SUGAR DIAGNOSTIC 1 EACH STRIP IN SCH ×2 (08:24→12:00)
[2018-12-23] MEDS: CALCIUM CARB 600MG /VIT D 1 EACH TABLET PO SCH (08:41)
[2018-12-23] MEDS: ASPIRIN EC 81 MG TABLET.DR PO SCH (08:41)
[2018-12-23] MEDS: CLOPIDOGREL BISULFATE 75 MG TABLET PO SCH (08:42)
[2018-12-23] MEDS: DOCUSATE SODIUM 250 MG CAPSULE PO SCH (08:42)
[2018-12-23] MEDS: MULTIVIT W/MINERALS 1 TAB TABLET PO SCH (08:42)
[2018-12-23] MEDS: METOLAZONE 2.5 MG TABLET PO SCH (08:54)
[2018-12-23] MEDS: LEVETIRACETAM 750 MG PO SCH (08:54)
[2018-12-23] MEDS: LISINOPRIL (20MG) 20 MG TABLET PO SCH (08:56)
[2018-12-23] MEDS ORDERED: CARVEDILOL 6.25 MG TABLET PO SCH (09:30)
[2018-12-23] MEDS ORDERED: DEXAMETHASONE 1 MG TABLET PO SCH (10:38)
[2018-12-23] MEDS ORDERED: TAMSULOSIN 0.4 MG CAP.SR.24H PO SCH (10:40)
[2018-12-23] MEDS ORDERED: CARBIDOPA/LEVODOPA 25/100 MG 1 UDTAB PO SCH (13:00)
== END 2018-12-23 12:30 | disposition home or self-care (01) | DRG 64 ==
DX: I63.9 Cerebral infarction, unspecified (principal); G93.41 Metabolic encephalopathy; D68.59 Other primary thrombophilia; E44.1 Mild protein-calorie malnutrition; N39.0 Urinary tract infection, site not specified; E87.2 Acidosis; G40.909 Epilepsy, unspecified, not intractable, without status epilepticus; D69.6 Thrombocytopenia, unspecified; R13.10 Dysphagia, unspecified; E83.42 Hypomagnesemia; E11.65 Type 2 diabetes mellitus with hyperglycemia; G20 Parkinson's disease; Z86.73 Personal history of transient ischemic attack (TIA), and cerebral infarction without residual deficits; N40.0 Benign prostatic hyperplasia without lower urinary tract symptoms; Z91.048 Other nonmedicinal substance allergy status; Z85.841 Personal history of malignant neoplasm of brain; Z79.899 Other long term (current) drug therapy; Z79.4 Long term (current) use of insulin; Z79.02 Long term (current) use of antithrombotics/antiplatelets; E78.5 Hyperlipidemia, unspecified; Z68.32 Body mass index [BMI] 32.0-32.9, adult; E66.9 Obesity, unspecified; I10 Essential (primary) hypertension; I70.0 Atherosclerosis of aorta; Z98.890 Other specified postprocedural states